=== PATIENT | female | born 1980 | race Caucasian/White ===

== ENCOUNTER → 2016-12-21 | Outpatient (CLI) | payer OTHER ==
[~2016-12-21] VITALS: Ht 165.1 cm; Wt 90.7 kg
[~2016-12-21] MED LIST: DICYCLOMINE HCL10 MG PO; FOLIC ACID 1 MG1 MG PO; HUMIRA40 MG/0.8 SQ; LOMOTIL 2.5-0.1 EACH PO; METHOTREXA25 MG/1 ML SQ; NAPROSYN500 MG PO; NORCO 7.5-3251 EACH PO; PAXIL20 MG PO; VITAMIN D32000 UNI1 PO; WELLBUTRIN XL150 MG PO; ZOFRAN 4 MG TAB4 MG PO
[2016-12-21 10:05] LABS: HEMOGLOBIN 13.2 gm/dl (12.3-15.3); RED BLOOD COUNT 4.94 M/UL (4.00-5.10); WHITE BLOOD COUNT 3.3 K/UL (4.5-11.0)
[2016-12-21 10:10] LABS: BUN/CREATININE RATIO 15 (0-10)
== END ==
LOC: OPSV 09:00
PROVIDERS: Internal Medicine Gastroenterology
DX: K51.90 Ulcerative colitis, unspecified, without complications (principal)
CPT/HCPCS: 36415; 80053; 85025; 86140; 96375; 96413; 96415; J1720; J1745; Q0163

== ENCOUNTER → 2017-02-15 | Outpatient (CLI) | payer OTHER ==
[~2017-02-15] VITALS: Ht 165.1 cm; Wt 97.5 kg
[2017-02-15 09:49] LABS: HEMOGLOBIN 13.9 gm/dl (12.3-15.3); RED BLOOD COUNT 5.22 M/UL (4.00-5.10); WHITE BLOOD COUNT 3.9 K/UL (4.5-11.0)
[2017-02-15 10:09] LABS: BUN/CREATININE RATIO 20 (0-10)
== END ==
LOC: OPSV 08:52
PROVIDERS: Internal Medicine Gastroenterology
DX: K51.90 Ulcerative colitis, unspecified, without complications (principal)
CPT/HCPCS: 36415; 80053; 85025; 86140; 96375; 96413; 96415; J1720; J1745; Q0163

== ENCOUNTER 2020-11-21 17:24 | Emergency (ER) | payer OTHER ==
[2020-11-21 22:28] LABS: HEMOGLOBIN 14.7 gm/dl (12.3-15.3); RED BLOOD COUNT 5.04 M/UL (4.00-5.10); WHITE BLOOD COUNT 7.1 K/UL (4.5-11.0)
[2020-11-21 22:43] LABS: BUN/CREATININE RATIO 10 (0-10)
[2020-11-22] MEDS ORDERED: ZOFRAN4 MG PO (00:32)
[2020-11-22] MEDS ORDERED: MOTION SICKNESS25 M3 PO (00:32)
[2020-11-22] MEDS ORDERED: CYCLOBENZAPRINE10 MG PO (01:08)
[2020-11-22] MEDS ORDERED: IMITREX25 MG PO (01:08)
== END 2020-11-22 01:27 | disposition home or self-care (01) ==
LOC: ER1 17:24
PROVIDERS: Physician Assistant
DX: R42 Dizziness and giddiness (principal); R53.1 Weakness; Z20.822 Contact with and (suspected) exposure to COVID-19; Z90.49 Acquired absence of other specified parts of digestive tract; Z90.710 Acquired absence of both cervix and uterus
CPT/HCPCS: 36415; 70450; 71045; 80053; 81001; 82550; 82553; 83874; 84439; 84443; 84484; 84703; 85025; 87086; 93005; 99285; U0002

== ENCOUNTER → 2021-02-23 | Outpatient (CLI) | payer OTHER ==
[~2021-02-23] MED LIST changes: +CYCLOBENZAPRINE10 MG PO; +IMITREX25 MG PO; +MOTION SICKNESS25 M3 PO; +ZOFRAN4 MG PO
== END ==
LOC: HEART CORB 12:26
DX: R94.31 Abnormal electrocardiogram [ECG] [EKG] (principal); R42 Dizziness and giddiness